=== PATIENT | male | born 1990 | race Caucasian/White ===

== ENCOUNTER 2016-07-15 11:46 | Emergency (ER) | payer MEDICAID ==
--- NOTE | 2016-07-15 12:31 | EDPHY ---
H & P Time Seen by Provider: 07/15/16 12:30 HPI/ROS: Chief complaint. Fever HPI. 25-year-old male here with 2 day history of fever, body aches. He just spent 3 weeks in the post in [facility] on a climbing trip. Did not take malaria prophylaxis. On his way back from [facility] he started to develop the above symptoms. He was well while he was in [facility]. He has been back for 2 days. Slight cough and sore throat. No vomiting or diarrhea. He has been constipated the last 2 days. No urinary symptoms. No rash. ROS Constitutional. Fever and chills Eyes. no problems with vision ENT. no sore throat, no nasal drainage Cardiovascular. no chest pain Respiratory. Cough Abdominal. no abdominal pain, no nausea/vomiting, no diarrhea . no problems urinating MS. no calf pain/swelling, no neck/back pain, no joint pain Skin. no rash Lymph. no swollen glands Neuro. no headache, no dizziness, no difficulty walking or with speech Past Medical/Surgical History: Healthy Social History: Single nonsmoker no alcohol Smoking Status: Never smoked Physical Exam: General Appearance: Alert well-developed male moderate distress vital show a temp 38.1degrees, heart rate 112 Eyes: Pupils equal and round no pallor or injection. ENT, Mouth: Mucous membranes are moist. Respiratory: There are no retractions, lungs are clear to auscultation. Cardiovascular: Regular rate and rhythm. Gastrointestinal: Abdomen is soft and nontender, no masses, bowel sounds normal. Neurological: Awake and alert, sensory and motor exams grossly normal. Skin: Warm and dry, no rashes. Musculoskeletal: Neck is supple nontender. Extremities symmetrical, full range of motion. Psychiatric: Patient is oriented X 3, there is no agitation. Constitutional: Initial Vital Signs Temperature (C) 38.1 C 07/15/16 11:50 Heart Rate 112 H 07/15/16 11:50 Respiratory Rate 18 07/15/16 11:50 Blood Pressure 119/61 07/15/16 11:50 O2 Sat (%) 97 07/15/16 11:50 O2 Delivery Mode Room Air Allergies/Adverse Reactions: No Known Allergies Allergy (Verified 07/15/16 11:53) Home Medications: Medication Instructions Recorded NK [No Known Home Meds] 07/15/16 Medical Decision Making Procedures: IV normal saline, ibuprofen ED Course/Re-evaluation: I consulted and had a phone discussion with Dr. Clark, infectious Disease, who recommends influenza swab and will see the patient in the office in the next 1- 2 days. Otherwise she agrees with workup The patient and I discussed labs and imaging studies. We discussed treatment plan, criteria for return, importance of follow up and further evaluation. He expresses understanding and agreed Differential Diagnosis: I considered malaria, dengue, influenza, viral syndrome, pneumonia - Data Points Laboratory Results: Laboratory Results 07/15/16 12:10 07/15/16 12:10 07/15/16 07/15/16 07/15/16 12:52 12:45 12:10 WBC 6.45 10^3/uL (3.80-9.50) RBC 5.03 10^6/uL (4.40-6.38) Hgb 16.0 g/dL (13.7-17.5) Hct 46.0 % (40.0-51.0) MCV 91.5 fL (81.5-99.8) MCH 31.8 pg (27.9-34.1) MCHC 34.8 g/dL (32.4-36.7) RDW 12.6 % (11.5-15.2) Plt Count 226 10^3/uL (150-400) MPV 9.1 fL (8.7-11.7) Neut % (Auto) 54.9 % (39.3-74.2) Lymph % (Auto) 26.2 % (15.0-45.0) [place] % (Auto) 18.0 H % (4.5-13.0) Eos % (Auto) 0.2 L % (0.6-7.6) Baso % (Auto) 0.5 % (0.3-1.7) Nucleat RBC Rel Count 0.0 % (0.0-0.2) Absolute Neuts (auto) 3.55 10^3/uL (1.70-6.50) Absolute Lymphs (auto) 1.69 10^3/uL (1.00-3.00) Absolute Monos (auto) 1.16 H 10^3/uL (0.30-0.80) Absolute Eos (auto) 0.01 L 10^3/uL (0.03-0.40) Absolute Basos (auto) 0.03 10^3/uL (0.02-0.10) Absolute Nucleated RBC 0.00 10^3/uL (0-0.01) Immature Gran % 0.2 % (0.0-1.1) Immature Gran # 0.01 10^3/uL (0.00-0.10) PT 13.5 SEC (12.0-15.0) INR 1.04 (0.83-1.16) APTT 32.3 SEC (23.0-38.0) VBG Lactic Acid 1.3 mmol/L (0.7-2.1) Sodium 139 mEq/L (134-144) Potassium 4.0 mEq/L (3.5-5.2) Chloride 100 mEq/L (97-110) Carbon Dioxide 25 mEq/l (22-31) Anion Gap 14 mEq/L (8-16) BUN 10 mg/dL (7-23) Creatinine 1.0 mg/dL (0.7-1.3) Estimated GFR > 60 Glucose 162 H mg/dL (70-100) Calcium 9.0 mg/dL (8.5-10.4) Total Bilirubin 0.5 mg/dL (0.1-1.4) Conjugated Bilirubin 0.2 mg/dL (0.0-0.5) Unconjugated Bilirubin 0.3 mg/dL (0.0-1.1) AST 29 IU/L (17-59) ALT 29 IU/L (21-72) Alkaline Phosphatase 57 IU/L (38-126) Total Protein 7.5 g/dL (6.3-8.2) Albumin 4.3 g/dL (3.5-5.0) Urine Color PALE YELLOW Urine Appearance CLEAR Urine pH 6.0 (5.0-7.5) Ur Specific [place] 1.003 (1.002-1.030) Urine Protein NEGATIVE (NEGATIVE) Urine Ketones NEGATIVE (NEGATIVE) Urine Blood NEGATIVE (NEGATIVE) Urine Nitrate NEGATIVE (NEGATIVE) Urine Bilirubin NEGATIVE (NEGATIVE) Urine Urobilinogen NEGATIVE EU (0.2-1.0) Ur Leukocyte Esterase NEGATIVE (NEGATIVE) Urine Glucose NEGATIVE (NEGATIVE) Malaria Smear Pending Malaria Sm Path Review Pending Medications Given: Discontinued Medications Sodium Chloride (Ns) 2,000 mls @ 0 mls/hr IV ONCE ONE PRN Reason: Wide Open Stop: 07/15/16 13:03 Last Admin: 07/15/16 13:04 Dose: 2,000 mls Ibuprofen (Motrin) 600 mg PO EDNOW ONE Stop: 07/15/16 12:40 Last Admin: 07/15/16 12:50 Dose: 600 mg Departure - Departure Disposition: Home, Routine, Self-Care Clinical Impression: Fever Qualifiers: Encounter type: initial encounter Condition: Good Instructions: Fever in Adults (ED) Additional Instructions: Drink plenty of fluids and stay hydrated. Ibuprofen 600 mg every 6 hours, Tylenol 650 mg every 4-6 hours as needed for fever. Return for worsening fever , pain, vomiting. Call Dr. Clark tomorrow morning to arrange follow-up appointment in the next 2-3 days Referrals: NONE *PRIMARY CARE P,. [Primary Care Provider] - As per Instructions Chalino Clark MD [Medical Doctor] - 2-3 days without fail
[2016-07-15] MEDS ORDERED: IBUPROFEN 600 MG TAB PO ONE (12:39)
[2016-07-15 12:49] LABS: % IMMATURE GRANULYOCYTES 0.2 % (0.0-1.1); ABSOLUTE IMMATURE GRANULOCYTES 0.01 10^3/uL (0.00-0.10); ADD DIFF? NO; ADD MORPH? NO; ADD SCAN? NO; ATYPICAL LYMPHOCYTE FLAG 50 (0-99); FRAGMENT RBC FLAG 0 (0-99); LEFT SHIFT FLG 0 (0-99); LIPEMIA HEMOLYSIS FLAG 90 (0-99); MEAN CELL HEMOGLOBIN 31.8 pg (27.9-34.1); MEAN CELL HEMOGLOBIN CONCENTR. 34.8 g/dL (32.4-36.7); MEAN CELL VOLUME 91.5 fL (81.5-99.8); MEAN PLATELET VOLUME 9.1 fL (8.7-11.7); PLATELET CLUMPS FLAG 0 (0-99); PLATELET COUNT 226 10^3/uL (150-400); RED BLOOD CELL COUNT 5.03 10^6/uL (4.40-6.38); RED CELL DISTRIBUTION WIDTH 12.6 % (11.5-15.2)
[2016-07-15 13:00] LABS: ALANINE AMINOTRANSFERASE 29 IU/L (21-72); ALBUMIN 4.3 g/dL (3.5-5.0); ALKALINE PHOSPHATASE 57 IU/L (38-126); ANION GAP 14 mEq/L (8-16); ASPARTATE AMINOTRANSFERASE 29 IU/L (17-59); BILIRUBIN,TOTAL 0.5 mg/dL (0.1-1.4); BILIRUBIN-CONJUGATED 0.2 mg/dL (0.0-0.5); BILIRUBIN-UNCONJUGATED 0.3 mg/dL (0.0-1.1); CARBON DIOXIDE 25 mEq/l (22-31); CHLORIDE 100 mEq/L (97-110); GLOMERULAR FILTRATION RATE > 60; GLUCOSE 162 mg/dL (70-100); SODIUM 139 mEq/L (134-144); TOTAL PROTEIN 7.5 g/dL (6.3-8.2)
[2016-07-15] MEDS ORDERED: NS 2,000 ML IV ONE (13:02)
[2016-07-15 13:03] LABS: APTT 32.3 SEC (23.0-38.0); INR 1.04 (0.83-1.16); PROTIME(PATIENT) 13.5 SEC (12.0-15.0)
[2016-07-15 13:22] LABS: COLOR PALE YELLOW; LEUKOCYTE ESTERASE,URINE NEGATIVE (NEGATIVE); NITRITE,URINE NEGATIVE (NEGATIVE)
[2016-07-15 13:49] VITALS: O2SAT 96
[2016-07-15 14:30] LABS: MALARIAL PREP NONE SEEN (NONE SEEN)
[2016-07-15 14:42] VITALS: BP 112/60; PULSE 90; RESP 14; TEMP 98.2
--- NOTE | 2016-07-15 14:54 | DX ---
PA and Lateral Chest X-ray 1251 hours History: Dyspnea. Comparison previous study of December 01, 2015. Findings: Heart size and pulmonary vasculature are normal. The lungs are clear without infiltrates or effusions. There is no pneumothorax. The osseous structures are intact. Impression: Normal chest x-ray.
== END 2016-07-15 14:40 | disposition home or self-care (01) ==
DX: R50.9 Fever, unspecified (principal)